=== PATIENT | female | born 1985 | race Caucasian/White ===

== ENCOUNTER → 2016-07-26 | Outpatient (CLI) | payer OTHER ==
[2016-01-08 11:38] VITALS: BP 156/97
[~2016-07-26] MED LIST: ACET-704 PO; GADOBUTROL 7.5 MMOL/7.5 ML VIAL IV ONE; LEVO500T38 PO
--- NOTE | 2016-07-26 12:22 | RAD ---
PROCEDURE MRI brain with and without contrast. HISTORY Worsening migraine headaches. TECHNIQUE Sagittal T1, axial T1, axial T2, axial FLAIR, axial T2 gradient, diffusion imaging with ADC map, post-contrast axial, post-contrast sagittal, and post-contrast coronal sequences are provided. 7.5 milliliters of intravenous Gadavist was administered without complication. COMPARISON October 30, 2014. FINDINGS Ventricles are normal in size and configuration. FLAIR hyperintensity in the left frontal white matter is similar to prior. There is no associated enhancement. There is no acute intracranial hemorrhage or extra-axial fluid collection. There is no restricted diffusion to suggest an acute infarct. Cervicomedullary junction is unremarkable. Pituitary and suprasellar region are unremarkable. Basilar artery flow void is diminutive in size, presumably secondary to a predominantly origin of both posterior cerebral arteries. There is minimal ethmoid mucosal thickening. 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 There is no pathologic enhancement. IMPRESSION - No acute intracranial findings. - Single punctate focus of FLAIR hyperintensity in the left frontal white matter is stable, nonspecific, could be sequela of small migraine headaches. Electronically signed by: Malvin Jasso MD (July 26, 2016 12:20:42)
== END | disposition home or self-care (01) ==
LOC: MRI 11:01
PROVIDERS: ATTEND Internal Medicine
DX: G43.909 Migraine, unspecified, not intractable, without status migrainosus (principal)
CPT/HCPCS: 70553; A9585

== ENCOUNTER 2018-08-11 12:09 | Inpatient (IN) | payer OTHER, SELFPAY ==
[~2018-08-11] VITALS: Ht 154.9 cm; Wt 81.6 kg
[~2018-08-11 12:09] MED LIST changes: -GADOBUTROL 7.5 MMOL/7.5 ML VIAL IV ONE; -LEVO500T38 PO; +LEVO500T59 PO
[2018-08-11 12:36] LABS: BILIRUBIN,URINE NEGATIVE (NEG); CLARITY,URINE CLOUDY; COLOR,URINE YELLOW; NITRITE,URINE NEGATIVE (NEG); PROTEIN,URINE 30 mg/dL (NEG-TRACE)
[2018-08-11 12:44] LABS: SQUAMOUS EPITHELIAL CELL,UR MANY /LPF
[2018-08-11] MEDS ORDERED: KETOROLAC 30 MG/ML VIAL. IV ONE (12:45)
[2018-08-11] MEDS ORDERED: ONDANSETRON PF 4 MG/2 ML VIAL. IV ONE (12:45)
[2018-08-11 12:47] LABS: BACTERIA,URINE 0 /HPF (0-FEW); RBC,URINE 0 /HPF (0-2); WBC,URINE 0 /HPF (0-4)
--- NOTE | 2018-08-11 12:49 | PHYS DOC ---
Past Medical History Past Medical History: Other Additional Past Medical Histor: PCOS, MIGRAINES, BRONCHITIS Past Surgical History: Other Additional Past Surgical Histo: knee surgery , tubes in ears, LASIX, Alcohol Use: Occasionally Drug Use: None Adult General Chief Complaint Chief Complaint: ABDOMINAL PAIN HPI HPI Patient is a 33 year old female with history of PCOS who presents to the ED today stating she has appendicitis. Patient is complaining of pelvic/lower abd bilaterally pain rated at 8 out of 10 described as sharp and intermittent that has been going on since Monday this week, she states she was seen at [facility] and was told her appendix is inflamed but sent home with Zofran. Patient denies any vomiting. He states she's been nauseated. Denies any chance she is . She states that they did an ultrasound at [facility] as well as a pelvic exam which showed she had an inflamed appendix. Denies any urgency frequency dysuria. Denies any concerns for STDs. Review of Systems Review of Systems Constitutional: Denies fever or chills [] Eyes: Denies change in visual acuity, redness, or eye pain [] HENT: Denies nasal congestion or sore throat [] Respiratory: Denies cough or shortness of breath [] Cardiovascular: No additional information not addressed in HPI [] GI: Reports abdominal pain, nausea, denies vomiting, bloody stools or diarrhea [] : Denies dysuria or hematuria [] Musculoskeletal: Denies back pain or joint pain [] Integument: Denies rash or skin lesions [] Neurologic: Denies headache, focal weakness or sensory changes [] All other systems were reviewed and found to be within normal limits, except as documented in this note. Current Medications Current Medications Current Medications Medications (Trade) Dose Ordered Sig/Genevieve Start Time Stop Time Status Last Admin Dose Admin Info (CONTRAST GIVEN -- Rx MONITORING) 1 each PRN DAILY PRN 08/11/18 13:30 08/13/18 13:29 Iohexol (Omnipaque 300 Mg/ml) 75 ml 1X ONCE 08/11/18 13:15 08/11/18 13:16 DC 08/11/18 13:40 75 ML Ketorolac Tromethamine (Toradol 30mg Vial) 30 mg 1X ONCE 08/11/18 12:45 08/11/18 12:46 DC 08/11/18 12:49 30 MG Ondansetron HCl (Zofran) 4 mg 1X ONCE 08/11/18 12:45 08/11/18 12:46 DC 08/11/18 12:49 4 MG Allergies Allergies Allergies Coded Allergies Type Severity Reaction Last Updated Verified No Known Drug Allergies 02/26/14 No Physical Exam Physical Exam Constitutional: Well developed, well nourished, no acute distress, non-toxic appearance. [] HENT: Normocephalic, atraumatic, bilateral external ears normal, oropharynx moist, no oral exudates, nose normal. [] Eyes: PERRLA, EOMI, conjunctiva normal, no discharge. [] Neck: Normal range of motion, no tenderness, supple, no stridor. [] Cardiovascular:Heart rate regular rhythm, no murmur [] Lungs & Thorax: Bilateral breath sounds clear to auscultation [] Abdomen: Bowel sounds normal, soft, tenderness diffusely on the pelvic region bilaterally, negative psoas sign, negative obturator sign, negative Rovsing sign, no guarding, no rebound tenderness no masses, no pulsatile masses. [] Skin: Warm, dry, no erythema, no rash. [] Back: No tenderness, no CVA tenderness. [] Extremities: No tenderness, no cyanosis, no clubbing, ROM intact, no edema. [] Neurologic: Alert and oriented X 3, normal motor function, normal sensory function, no focal deficits noted. [] Psychologic: Affect normal, judgement normal, mood normal. [] Current Patient Data Vital Signs Vital Signs Date Time Temp Pulse Resp B/P (MAP) Pulse Ox O2 Delivery O2 Flow Rate FiO2 08/11/18 14:15 92 15 96/67 (77) 99 Room Air 08/11/18 12:15 98.4 98.4 Lab Values Laboratory Tests Test 08/11/18 12:20 08/11/18 12:28 08/11/18 12:39 Urine Collection Type Unknown Urine Color Yellow Urine Clarity Cloudy Urine pH 6.0 Urine Specific [place] >=1.030 Urine Protein 30 mg/dL (NEG-TRACE) Urine Glucose (UA) Negative mg/dL (NEG) Urine Ketones (Stick) Negative mg/dL (NEG) Urine Blood Negative (NEG) Urine Nitrite Negative (NEG) Urine Bilirubin Negative (NEG) Urine Urobilinogen Dipstick 1.0 mg/dL (0.2 mg/dL) Urine Leukocyte Esterase Moderate (NEG) Urine RBC 0 /HPF (0-2) Urine WBC 0 /HPF (0-4) Urine Squamous Epithelial Cells Many /LPF Urine Bacteria 0 /HPF (0-FEW) Urine Mucus Slight /LPF Urine Opiates Screen Neg (NEG) Urine Methadone Screen Neg (NEG) Urine Barbiturates Neg (NEG) Urine Phencyclidine Screen Neg (NEG) Urine Amphetamine/Methamphetamine Neg (NEG) Urine Benzodiazepines Screen Neg (NEG) Urine Cocaine Screen Neg (NEG) Urine Cannabinoids Screen Neg (NEG) Urine Ethyl Alcohol Neg (NEG) POC Urine HCG, Qualitative Hcg negative (Negative) White Blood Count 15.4 x10^3/uL (4.0-11.0) H Red Blood Count 4.76 x10^6/uL (3.50-5.40) Hemoglobin 14.3 g/dL (12.0-15.5) Hematocrit 41.9 % (36.0-47.0) Mean Corpuscular Volume 88 fL (79-100) Mean Corpuscular Hemoglobin 30 pg (25-35) Mean Corpuscular Hemoglobin Concent 34 g/dL (31-37) Red Cell Distribution Width 13.6 % (11.5-14.5) Platelet Count 304 x10^3/uL (140-400) Neutrophils (%) (Auto) 70 % (31-73) Lymphocytes (%) (Auto) 20 % (24-48) L Monocytes (%) (Auto) 8 % (0-9) Eosinophils (%) (Auto) 1 % (0-3) Basophils (%) (Auto) 1 % (0-3) Neutrophils # (Auto) 10.8 x10^3uL (1.8-7.7) H Lymphocytes # (Auto) 3.1 x10^3/uL (1.0-4.8) Monocytes # (Auto) 1.2 x10^3/uL (0.0-1.1) H Eosinophils # (Auto) 0.1 x10^3/uL (0.0-0.7) Basophils # (Auto) 0.1 x10^3/uL (0.0-0.2) Sodium Level 141 mmol/L (136-145) Potassium Level 4.0 mmol/L (3.5-5.1) Chloride Level 105 mmol/L (98-107) Carbon Dioxide Level 25 mmol/L (21-32) Anion Gap 11 (6-14) Blood Urea Nitrogen 9 mg/dL (7-20) Creatinine 0.8 mg/dL (0.6-1.0) Estimated GFR (Cockcroft-Gault) 81.6 BUN/Creatinine Ratio 11 (6-20) Glucose Level 94 mg/dL (70-99) Calcium Level 8.7 mg/dL (8.5-10.1) Total Bilirubin 0.1 mg/dL (0.2-1.0) L Aspartate Amino Transferase (AST) 24 U/L (15-37) Alanine Aminotransferase (ALT) 31 U/L (14-59) Alkaline Phosphatase 77 U/L (46-116) Total Protein 7.1 g/dL (6.4-8.2) Albumin 3.6 g/dL (3.4-5.0) Albumin/Globulin Ratio 1.0 (1.0-1.7) Lipase 200 U/L (73-393) Ethyl Alcohol Level < 10 mg/dL (0-10) Laboratory Tests 08/11/18 12:39 Laboratory Tests 08/11/18 12:39 EKG EKG [] Radiology/Procedures Radiology/Procedures []PROCEDURE: CT ABD PELV W/ IV CONTRST ONLY Examination: CT of the abdomen pelvis with IV contrast HISTORY: History of lower abdominal pain COMPARISON: None available TECHNIQUE: Axial CT images of the abdomen pelvis were performed with IV contrast. Coronal and sagittal reformats are performed Exposure: One or more of the following individualized dose reduction techniques were utilized for this examination: 1. Automated exposure control 2. Adjustment of the mA and/or kV according to patient size 3. Use of iterative reconstruction technique FINDINGS: The bibasilar lungs are clear. No evidence of free air identified in the abdomen. The visualized liver, spleen, adrenals grossly appears unremarkable. The gallbladder is mildly distended. The stomach is mildly distended. The visualized pancreas grossly appears unremarkable. The small bowel is nondilated. Feces and gas noted in the colon. The urinary bladder is mildly distended. Prominent appearing bilateral ovaries with cystic structure in the right and left ovaries measuring about 3.6 cm in the right and 2.8 cm in the left. Faint questionable fat stranding identified in the adnexa. The bilateral kidneys enhance symmetrically. The caliber of the aorta grossly appears unremarkable. Intrauterine contraceptive device is identified. No evidence of lytic bony destructive lesion. IMPRESSION: Prominent appearing right and left ovaries with cystic structures within. There is some mild fat stranding identified in the bilateral adnexa. nonspecific, pelvic inflammatory disease is not completely excluded. Consider ultrasound pelvis for further evaluation. Electronically signed by: Azam Claros MD (08/11/2018 1:58 PM) [facility] DICTATED and SIGNED BY: AZMA CLAROS MD DATE: 08/11/18 2778 Course & Med Decision Making Course & Med Decision Making Pertinent Labs and Imaging studies reviewed. (See chart for details) This is a 33-year-old female patient presenting to the ED today complaining of abdominal pain, she states she was seen at a different facility on and was told her appendix was inflamed but sent home with Zofran. Vitals on arrival to the ED temperature 98.4 heart rate 100 O2 sats 99% on room air blood pressure 156/97. CBC with a WBC of 15.4, CMP would not acute findings. CT of the abdomen and pelvic was noted for possible pelvic inflammatory disease. Negative urine hCG, urine analysis is noted for moderate amount of leukocytes. Patient states she from the and has had 2 new partners in the last couple months. On inquiry, patient states when she was seen at [facility] she was given what sounds like Rocephin and azithromycin though she was not 100% sure. Patient was given Rocephin IV, Flagyl and azithromycin IV 14:[address] Maldonado who accepted patient for admission Draggilda Disclaimer Dragon Disclaimer This electronic medical record was generated, in whole or in part, using a voice recognition dictation system. Departure Departure Impression: Primary Impression: Acute pelvic inflammatory disease Disposition: ADMITTED INPATIENT Condition: STABLE Referrals: RHINA BLACKWOOD MD (PCP) [employer] August 11, 2018 12:49
[2018-08-11 12:59] LABS: BASO # 0.1 x10^3/uL (0.0-0.2); BASO % 1 % (0-3); EOS # 0.1 x10^3/uL (0.0-0.7); EOS % 1 % (0-3); HEMATOCRIT 41.9 % (36.0-47.0); HEMOGLOBIN 14.3 g/dL (12.0-15.5); LYMPH # 3.1 x10^3/uL (1.0-4.8); LYMPH % 20 % (24-48); MEAN CORPUSCULAR HEMOGLOBIN 30 pg (25-35); MEAN CORPUSCULAR HGB CONC 34 g/dL (31-37); MEAN CORPUSCULAR VOLUME 88 fL (79-100); MONO # 1.2 x10^3/uL (0.0-1.1); MONO % 8 % (0-9); NEUT # 10.8 x10^3uL (1.8-7.7); NEUT % 70 % (31-73); PLATELET COUNT 304 x10^3/uL (140-400); RED BLOOD COUNT 4.76 x10^6/uL (3.50-5.40); RED CELL DISTRIBUTION WIDTH 13.6 % (11.5-14.5); WHITE BLOOD COUNT 15.4 x10^3/uL (4.0-11.0)
[2018-08-11] MEDS ORDERED: IOHEXOL 300 MG/ML 100ML VIAL. IV ONE (13:15)
[2018-08-11 13:26] LABS: CALCIUM 8.7 mg/dL (8.5-10.1); CREATININE 0.8 mg/dL (0.6-1.0); GFR 81.6
[2018-08-11] MEDS ORDERED: CONTRAST GIVEN. MC PRN (13:30)
[2018-08-11 13:32] LABS: ALBUMIN 3.6 g/dL (3.4-5.0); TOTAL BILIRUBIN 0.1 mg/dL (0.2-1.0); TOTAL PROTEIN 7.1 g/dL (6.4-8.2)
[2018-08-11 13:35] LABS: BARBITURATES NEG (NEG); BENZODIAZEPINES NEG (NEG); CANNABINOIDS NEG (NEG); COCAINE NEG (NEG); METHADONE NEG (NEG); OPIATES NEG (NEG); PHENCYCLIDINE NEG (NEG)
[2018-08-11 13:36] LABS: AMPHETAMINE/METHAMPHETAMINE NEG (NEG)
--- NOTE | 2018-08-11 14:01 | RAD ---
Examination: CT of the abdomen pelvis with IV contrast HISTORY: History of lower abdominal pain COMPARISON: None available TECHNIQUE: Axial CT images of the abdomen pelvis were performed with IV contrast. Coronal and sagittal reformats are performed Exposure: One or more of the following individualized dose reduction techniques were utilized for this examination: 1. Automated exposure control 2. Adjustment of the mA and/or kV according to patient size 3. Use of iterative reconstruction technique FINDINGS: The bibasilar lungs are clear. No evidence of free air identified in the abdomen. The visualized liver, spleen, adrenals grossly appears unremarkable. The gallbladder is mildly distended. The stomach is mildly distended. The visualized pancreas grossly appears unremarkable. The small bowel is nondilated. Feces and gas noted in the colon. The urinary bladder is mildly distended. Prominent appearing bilateral ovaries with cystic structure in the right and left ovaries measuring about 3.6 cm in the right and 2.8 cm in the left. Faint questionable fat stranding identified in the adnexa. The bilateral kidneys enhance symmetrically. The caliber of the aorta grossly appears unremarkable. Intrauterine contraceptive device is identified. No evidence of lytic bony destructive lesion. IMPRESSION: Prominent appearing right and left ovaries with cystic structures within. There is some mild fat stranding identified in the bilateral adnexa. nonspecific, pelvic inflammatory disease is not completely excluded. Consider ultrasound pelvis for further evaluation. Electronically signed by: Azam Claros MD (08/11/2018 1:58 PM) [facility]
[2018-08-11] MEDS ORDERED: IV NORMAL SALINE 1000ML BAG 1,000 ML IV ONE (15:30)
[2018-08-11] MEDS ORDERED: ONDANSETRON PF 4 MG/2 ML VIAL. IV PRN ×2 (15:30→15:45)
[2018-08-11] MEDS ORDERED: AZITHRMYCN 500MG IVPB FOR OMNI 250 ML IV ONE (15:30)
[2018-08-11] MEDS ORDERED: MORPHINE SULFATE 4 MG/ML VIAL. IV PRN (15:30)
[2018-08-11] MEDS ORDERED: ACETAMINOPHEN 325 MG TABLET. PO PRN (15:30)
[2018-08-11] MEDS ORDERED: KETOROLAC 30 MG/ML VIAL. IV PRN (15:45)
[2018-08-11] MEDS ORDERED: fentaNYL PF VIAL 100 MCG/2 ML VIAL IV PRN (15:45)
[2018-08-11] MEDS ORDERED: AZITHROMYCIN 500 MG in IV NORMAL SALINE 250ML 250 ML IV ONE (15:45)
[2018-08-11] MEDS ORDERED: cefTRIAXone IV Push 1 GM VIAL. IVP SCH (16:00)
[2018-08-11] MEDS: IV RINGERS,LACTATED 1000ML 1,000 ML IV SCH (16:54)
[2018-08-11] MEDS ORDERED: AZITHRMYCN 500MG IVPB FOR OMNI 250 ML IV SCH (17:00)
[2018-08-11 17:07] VITALS: BP 113/76
[2018-08-11] MEDS: IBUPROFEN 400 MG TABLET. PO PRN (18:20)
[2018-08-11] MEDS: NICOTINE 14MG PATCH. TD PRN (20:00)
[2018-08-11 23:02] VITALS: BP 119/75
[2018-08-12] MEDS: IV RINGERS,LACTATED 1000ML 1,000 ML IV SCH ×4 (01:47→21:46)
[2018-08-12] MEDS: IBUPROFEN 400 MG TABLET. PO PRN ×3 (06:09→20:40)
[2018-08-12 06:14] LABS: BASO # 0.1 x10^3/uL (0.0-0.2); BASO % 1 % (0-3); EOS # 0.3 x10^3/uL (0.0-0.7); EOS % 3 % (0-3); HEMOGLOBIN 13.4 g/dL (12.0-15.5); LYMPH # 3.3 x10^3/uL (1.0-4.8); LYMPH % 35 % (24-48); MEAN CORPUSCULAR HEMOGLOBIN 29 pg (25-35); MEAN CORPUSCULAR HGB CONC 33 g/dL (31-37); MEAN CORPUSCULAR VOLUME 88 fL (79-100); MONO # 0.7 x10^3/uL (0.0-1.1); MONO % 8 % (0-9); NEUT # 5.1 x10^3uL (1.8-7.7); NEUT % 54 % (31-73); PLATELET COUNT 241 x10^3/uL (140-400); RED BLOOD COUNT 4.64 x10^6/uL (3.50-5.40); RED CELL DISTRIBUTION WIDTH 13.5 % (11.5-14.5); WHITE BLOOD COUNT 9.5 x10^3/uL (4.0-11.0)
[2018-08-12 06:15] VITALS: BP 119/75
[2018-08-12 06:26] LABS: CALCIUM 8.4 mg/dL (8.5-10.1); CREATININE 0.7 mg/dL (0.6-1.0); GFR 95.2
--- NOTE | 2018-08-12 11:38 | PDOC1 ---
History and Physical Date of Admission Date of Admission DATE: 08/12/18 TIME: 11:34 Identification/Chief Complaint Chief Complaint pelvic pain Source Source: Chart review, Patient History of Present Illness History of Present Illness 33 y/o G0 presented with pelvic pain x 2 days. SHe denies fever, chills, night sweats or h/o STD. She has Mirena IUD in place since 2017 with no complications. Pelvic sono indicated possible PID with clinic symptoms from ED. Pt. currently taking IV abx and pelvic pain has improved. Past Surgical History Past Surgical History: No pertinent history Current Problem List Problem List Problems Medical Problems: (1) Acute pelvic inflammatory disease Status: Acute Current Medications Current Medications Current Medications Ondansetron HCl (Zofran) 4 mg 1X ONCE IV Last administered on 08/11/18at 12:49; Start 08/11/18 at 12:45; Stop 08/11/18 at 15:50; Status DC Ketorolac Tromethamine (Toradol 30mg Vial) 30 mg 1X ONCE IV Last administered on 08/11/18at 12:49; Start 08/11/18 at 12:45; Stop 08/11/18 at 15:50; Status DC Iohexol (Omnipaque 300 Mg/ml) 75 ml 1X ONCE IV Last administered on 08/11/18at 13:40; Start 08/11/18 at 13:15; Stop 08/11/18 at 13:16; Status DC Info (CONTRAST GIVEN -- Rx MONITORING) 1 each PRN DAILY PRN MC SEE COMMENTS; Start 08/11/18 at 13:30; Stop 08/13/18 at 13:29 Ondansetron HCl (Zofran) 4 mg PRN Q8HRS PRN IV NAUSEA/VOMITING; Start 08/11/18 at 15:30; Stop 08/11/18 at 15:50; Status DC Morphine Sulfate (Morphine Sulfate) 4 mg PRN Q2HR PRN IV PAIN; Start 08/11/18 at 15:30; Stop 08/11/18 at 15:50; Status DC Acetaminophen (Tylenol) 650 mg PRN Q4HRS PRN PO FEVER Last administered on 08/12/18at 10:37; Start 08/11/18 at 15:30; Stop 08/12/18 at 15:29 Ceftriaxone Sodium (Rocephin) 1 gm Q24H IVP ; Start 08/11/18 at 16:00; Stop 08/11/18 at 16:00; Status DC Azithromycin 250 ml @ 250 mls/hr 1X ONCE IV ; Start 08/11/18 at 15:30; Stop 08/11/18 at 16:29; Status Cancel Metronidazole 100 ml @ 100 mls/hr Q8HRS IV Last administered on 08/11/18at 15:30; Start 08/11/18 at 15:30; Stop 08/11/18 at 15:50; Status DC Sodium Chloride 1,000 ml @ 125 mls/hr 1X ONCE IV ; Start 08/11/18 at 15:30; Stop 08/11/18 at 15:50; Status DC Azithromycin 500 mg/Sodium Chloride 250 ml @ 250 mls/hr 1X ONCE IV Last administered on 08/11/18at 16:55; Start 08/11/18 at 15:45; Stop 08/11/18 at 16: 44; Status DC Ringer's Solution 1,000 ml @ 120 mls/hr Q8H20M IV Last administered on 08/12/18at 11:32; Start 08/11/18 at 15:45 Azithromycin 250 ml @ 250 mls/hr DAILY IV ; Start 08/11/18 at 17:00; Status UNV Metronidazole 100 ml @ 100 mls/hr Q12H IV Last administered on 08/12/18at 05:56; Start 08/11/18 at 18:00 Ondansetron HCl (Zofran) 4 mg PRN Q6HRS PRN IV NAUSEA/VOMITING; Start 08/11/18 at 15:45 Fentanyl Citrate (Fentanyl 2ml Vial) 50 mcg PRN Q6HRS PRN IV PAIN; Start 08/11/18 at 15:45 Ketorolac Tromethamine (Toradol 30mg Vial) 30 mg PRN Q6HRS PRN IV PAIN MILD/INFLAMMATION Last administered on 08/12/18at 00:35; Start 08/11/18 at 15:45; Stop 08/16/18 at 15:44 Ibuprofen (Motrin) 800 mg PRN Q6HRS PRN PO INFLAMMATION Last administered on 08/12/18at 06:09; Start 08/11/18 at 15:45 Nicotine (Nicoderm Cq 14mg) 1 patch PRN DAILY PRN TD SMOKING CESSATION Last administered on 08/11/18at 20:00; Start 08/11/18 at 15:45 Azithromycin 500 mg/Sodium Chloride 250 ml @ 250 mls/hr Q24H IV ; Start 08/12/18 at 16:00 Active Scripts Active Tylenol With Codeine #3 Tablet (Acetaminophen/Codeine Phosphate) 1 Each Tablet 1 Tab PO PRN Q6HRS PRN Levaquin (Levofloxacin) 500 Mg Tablet 1 Tab PO DAILY Allergies Allergies: Coded Allergies: No Known Drug Allergies (Unverified , 02/26/14) ROS General: No: Chills, Night Sweats, Fatigue, Malaise, Appetite, Other PSYCHOLOGICAL ROS: YES: Anxiety; No: Behavioral Disorder, Concentration difficultie, Decreased libido, Depression, Disorientation, Hallucinations, Hostility, Irritablity, Memory difficulties, Mood Swings, Obsessive thoughts, Physical abuse, Sexual abuse, Sleep disturbances, Suicidal ideation, Other Eyes: No Blurry vision, No Decreased vision, No Double vision, No Dry eyes, No Excessive tearing, No Eye Pain, No Itchy Eyes, No Loss of vision, No Photophobia, No Scotomata, No Uses contacts, No Uses glasses, No Other HEENT: No: Heacaches, Visual Changes, Hearing change, Nasal congestion, Nasal discharge, Oral lesions, Sinus pain, Sore Throat, Epistaxis, Sneezing, Snoring, Tinnitus, Vertigo, Vocal changes, Other ALLERGY AND IMMUNOLOGY: No: Hives, Insect Bite Sensitivity, Itchy/Watery Eyes, Nasal Congestion, Post Nasal Drip, Seasonal Allergies, Other Hematological and Lymphatic: No: Bleeding Problems, Blood Clots, Blood Transfusions, Brusing, Night Sweats, Pallor, Swollen Lymph Nodes, Other ENDOCRINE: No: Breast Changes, Galactorrhea, Hair Pattern Changes, Hot Flashes, Malaise/lethargy, Mood Swings, Palpitations, Polydipsia/polyuria, Skin Changes, Temperature Intolerance, Unexpected Weight Changes, Other Breast: No New/Changing Breast Lumps, No Nipple changes, No Nipple discharge, No Other Respiratory: No: Cough, Hemoptysis, Orthopnea, Pleuritic Pain, Shortness of breath, SOB with excertion, Sputum Changes, Stridor, Tachypnea, Wheezing, Other Cardiovascular: No Chest Pain, No Palpitations, No Orthopnea, No Paroxysmal Noc. Dyspnea, No Edema, No Lt Headedness, No Other Gastrointestinal: Yes Abdominal Pain Musculoskeletal: No Gait Disturbance, No Joint Pain, No Joint Stiffness, No Joint Swelling, No Muscle Pain, No Muscular Weakness, No Pain In:, No Swelling In:, No Other Skin: No Dry Skin, No Eczema, No Hair Changes, No Lumps, No Mole Changes, No Mottling, No Nail Changes, No Pruritus, No Rash, No Skin Lesion Changes, No Other, No Acne Physical Exam General: Alert, Oriented X3, Cooperative HEENT: Atraumatic Lungs: Clear to auscultation Heart: S1S2 Breasts: Normal Abdomen: Normal bowel sounds, Soft, No masses, Other (Right and Left lower quandrant tenderness; no rebound tenderness) Vitals Vitals Vital Signs Date Time Temp Pulse Resp B/P (MAP) Pulse Ox O2 Delivery O2 Flow Rate FiO2 08/12/18 06:15 97.9 83 16 119/75 (90) 98 Room Air 97.9 Labs Labs Laboratory Tests Test 08/11/18 12:20 08/11/18 12:28 08/11/18 12:39 08/12/18 05:50 Urine Collection Type Unknown Urine Color Yellow Urine Clarity Cloudy Urine pH 6.0 Urine Specific Cuthbert >=1.030 Urine Protein 30 mg/dL (NEG-TRACE) Urine Glucose (UA) Negative mg/dL (NEG) Urine Ketones (Stick) Negative mg/dL (NEG) Urine Blood Negative (NEG) Urine Nitrite Negative (NEG) Urine Bilirubin Negative (NEG) Urine Urobilinogen Dipstick 1.0 mg/dL (0.2 mg/dL) Urine Leukocyte Esterase Moderate (NEG) Urine RBC 0 /HPF (0-2) Urine WBC 0 /HPF (0-4) Urine Squamous Epithelial Cells Many /LPF Urine Bacteria 0 /HPF (0-FEW) Urine Mucus Slight /LPF Urine Opiates Screen Neg (NEG) Urine Methadone Screen Neg (NEG) Urine Barbiturates Neg (NEG) Urine Phencyclidine Screen Neg (NEG) Urine Amphetamine/Methamphetamine Neg (NEG) Urine Benzodiazepines Screen Neg (NEG) Urine Cocaine Screen Neg (NEG) Urine Cannabinoids Screen Neg (NEG) Urine Ethyl Alcohol Neg (NEG) Bedside Urine HCG, Qualitative Hcg negative (Negative) White Blood Count 15.4 x10^3/uL (4.0-11.0) 9.5 x10^3/uL (4.0-11.0) Red Blood Count 4.76 x10^6/uL (3.50-5.40) 4.64 x10^6/uL (3.50-5.40) Hemoglobin 14.3 g/dL (12.0-15.5) 13.4 g/dL (12.0-15.5) Hematocrit 41.9 % (36.0-47.0) 41.0 % (36.0-47.0) Mean Corpuscular Volume 88 fL (79-100) 88 fL (79-100) Mean Corpuscular Hemoglobin 30 pg (25-35) 29 pg (25-35) Mean Corpuscular Hemoglobin Concent 34 g/dL (31-37) 33 g/dL (31-37) Red Cell Distribution Width 13.6 % (11.5-14.5) 13.5 % (11.5-14.5) Platelet Count 304 x10^3/uL (140-400) 241 x10^3/uL (140-400) Neutrophils (%) (Auto) 70 % (31-73) 54 % (31-73) Lymphocytes (%) (Auto) 20 % (24-48) 35 % (24-48) Monocytes (%) (Auto) 8 % (0-9) 8 % (0-9) Eosinophils (%) (Auto) 1 % (0-3) 3 % (0-3) Basophils (%) (Auto) 1 % (0-3) 1 % (0-3) Neutrophils # (Auto) 10.8 x10^3uL (1.8-7.7) 5.1 x10^3uL (1.8-7.7) Lymphocytes # (Auto) 3.1 x10^3/uL (1.0-4.8) 3.3 x10^3/uL (1.0-4.8) Monocytes # (Auto) 1.2 x10^3/uL (0.0-1.1) 0.7 x10^3/uL (0.0-1.1) Eosinophils # (Auto) 0.1 x10^3/uL (0.0-0.7) 0.3 x10^3/uL (0.0-0.7) Basophils # (Auto) 0.1 x10^3/uL (0.0-0.2) 0.1 x10^3/uL (0.0-0.2) Sodium Level 141 mmol/L (136-145) 141 mmol/L (136-145) Potassium Level 4.0 mmol/L (3.5-5.1) 4.0 mmol/L (3.5-5.1) Chloride Level 105 mmol/L (98-107) 106 mmol/L (98-107) Carbon Dioxide Level 25 mmol/L (21-32) 24 mmol/L (21-32) Anion Gap 11 (6-14) 11 (6-14) Blood Urea Nitrogen 9 mg/dL (7-20) 8 mg/dL (7-20) Creatinine 0.8 mg/dL (0.6-1.0) 0.7 mg/dL (0.6-1.0) Estimated GFR (Cockcroft-Gault) 81.6 95.2 BUN/Creatinine Ratio 11 (6-20) Glucose Level 94 mg/dL (70-99) 95 mg/dL (70-99) Calcium Level 8.7 mg/dL (8.5-10.1) 8.4 mg/dL (8.5-10.1) Total Bilirubin 0.1 mg/dL (0.2-1.0) Aspartate Amino Transf (AST/SGOT) 24 U/L (15-37) Alanine Aminotransferase (ALT/SGPT) 31 U/L (14-59) Alkaline Phosphatase 77 U/L (46-116) Total Protein 7.1 g/dL (6.4-8.2) Albumin 3.6 g/dL (3.4-5.0) Albumin/Globulin Ratio 1.0 (1.0-1.7) Lipase 200 U/L (73-393) Ethyl Alcohol Level < 10 mg/dL (0-10) Laboratory Tests Test 08/11/18 12:20 08/11/18 12:28 08/11/18 12:39 08/12/18 05:50 Urine Collection Type Unknown Urine Color Yellow Urine Clarity Cloudy Urine pH 6.0 Urine Specific Cuthbert >=1.030 Urine Protein 30 mg/dL (NEG-TRACE) Urine Glucose (UA) Negative mg/dL (NEG) Urine Ketones (Stick) Negative mg/dL (NEG) Urine Blood Negative (NEG) Urine Nitrite Negative (NEG) Urine Bilirubin Negative (NEG) Urine Urobilinogen Dipstick 1.0 mg/dL (0.2 mg/dL) Urine Leukocyte Esterase Moderate (NEG) Urine RBC 0 /HPF (0-2) Urine WBC 0 /HPF (0-4) Urine Squamous Epithelial Cells Many /LPF Urine Bacteria 0 /HPF (0-FEW) Urine Mucus Slight /LPF Urine Opiates Screen Neg (NEG) Urine Methadone Screen Neg (NEG) Urine Barbiturates Neg (NEG) Urine Phencyclidine Screen Neg (NEG) Urine Amphetamine/Methamphetamine Neg (NEG) Urine Benzodiazepines Screen Neg (NEG) Urine Cocaine Screen Neg (NEG) Urine Cannabinoids Screen Neg (NEG) Urine Ethyl Alcohol Neg (NEG) Bedside Urine HCG, Qualitative Hcg negative (Negative) White Blood Count 15.4 x10^3/uL (4.0-11.0) 9.5 x10^3/uL (4.0-11.0) Red Blood Count 4.76 x10^6/uL (3.50-5.40) 4.64 x10^6/uL (3.50-5.40) Hemoglobin 14.3 g/dL (12.0-15.5) 13.4 g/dL (12.0-15.5) Hematocrit 41.9 % (36.0-47.0) 41.0 % (36.0-47.0) Mean Corpuscular Volume 88 fL (79-100) 88 fL (79-100) Mean Corpuscular Hemoglobin 30 pg (25-35) 29 pg (25-35) Mean Corpuscular Hemoglobin Concent 34 g/dL (31-37) 33 g/dL (31-37) Red Cell Distribution Width 13.6 % (11.5-14.5) 13.5 % (11.5-14.5) Platelet Count 304 x10^3/uL (140-400) 241 x10^3/uL (140-400) Neutrophils (%) (Auto) 70 % (31-73) 54 % (31-73) Lymphocytes (%) (Auto) 20 % (24-48) 35 % (24-48) Monocytes (%) (Auto) 8 % (0-9) 8 % (0-9) Eosinophils (%) (Auto) 1 % (0-3) 3 % (0-3) Basophils (%) (Auto) 1 % (0-3) 1 % (0-3) Neutrophils # (Auto) 10.8 x10^3uL (1.8-7.7) 5.1 x10^3uL (1.8-7.7) Lymphocytes # (Auto) 3.1 x10^3/uL (1.0-4.8) 3.3 x10^3/uL (1.0-4.8) Monocytes # (Auto) 1.2 x10^3/uL (0.0-1.1) 0.7 x10^3/uL (0.0-1.1) Eosinophils # (Auto) 0.1 x10^3/uL (0.0-0.7) 0.3 x10^3/uL (0.0-0.7) Basophils # (Auto) 0.1 x10^3/uL (0.0-0.2) 0.1 x10^3/uL (0.0-0.2) Sodium Level 141 mmol/L (136-145) 141 mmol/L (136-145) Potassium Level 4.0 mmol/L (3.5-5.1) 4.0 mmol/L (3.5-5.1) Chloride Level 105 mmol/L (98-107) 106 mmol/L (98-107) Carbon Dioxide Level 25 mmol/L (21-32) 24 mmol/L (21-32) Anion Gap 11 (6-14) 11 (6-14) Blood Urea Nitrogen 9 mg/dL (7-20) 8 mg/dL (7-20) Creatinine 0.8 mg/dL (0.6-1.0) 0.7 mg/dL (0.6-1.0) Estimated GFR (Cockcroft-Gault) 81.6 95.2 BUN/Creatinine Ratio 11 (6-20) Glucose Level 94 mg/dL (70-99) 95 mg/dL (70-99) Calcium Level 8.7 mg/dL (8.5-10.1) 8.4 mg/dL (8.5-10.1) Total Bilirubin 0.1 mg/dL (0.2-1.0) Aspartate Amino Transf (AST/SGOT) 24 U/L (15-37) Alanine Aminotransferase (ALT/SGPT) 31 U/L (14-59) Alkaline Phosphatase 77 U/L (46-116) Total Protein 7.1 g/dL (6.4-8.2) Albumin 3.6 g/dL (3.4-5.0) Albumin/Globulin Ratio 1.0 (1.0-1.7) Lipase 200 U/L (73-393) Ethyl Alcohol Level < 10 mg/dL (0-10) VTE Prophylaxis Ordered VTE Prophylaxis Devices: No VTE Pharmacological Prophylaxi: No Assessment/Plan Assessment/Plan A: PID P: Continue IV abx 48 hours. If improved, then d/c home tomorrow with home abx. BREONNA BRICE Jr, MD August 12, 2018 11:38
[2018-08-12 12:00] VITALS: BP 110/78
[2018-08-12] MEDS ORDERED: AZITHROMYCIN 500 MG in IV NORMAL SALINE 250ML 250 ML IV SCH (16:00)
[2018-08-12 18:46] VITALS: BP 116/78
[2018-08-12] MEDS: NICOTINE 14MG PATCH. TD PRN (20:36)
[2018-08-12 22:30] VITALS: BP 125/78
[2018-08-13] MEDS: IV RINGERS,LACTATED 1000ML 1,000 ML IV SCH (06:02)
[2018-08-13] MEDS: IBUPROFEN 400 MG TABLET. PO PRN (06:05)
[2018-08-13 06:10] VITALS: BP 104/73
--- NOTE | 2018-08-13 09:25 | PDOC ---
SURGICAL PROGRESS NOTE Subjective Pt. reports less pelvic pain. No fevers, chills, night sweats or difficulty with meals. Vital Signs Vital Signs Date Time Temp Pulse Resp B/P (MAP) Pulse Ox O2 Delivery O2 Flow Rate FiO2 08/13/18 06:10 97.7 72 14 104/73 (83) 97 Room Air 97.7 I&O Intake and Output 08/13/18 07:00 Intake Total 1200 ml Output Total 2400 ml Balance -1200 ml Intake Oral 1200 ml Tube Feeding 0 ml Output Urine Total 2400 ml # Bowel Movements 1 PATIENT HAS A DEWITT: No General: Alert, Oriented X3, Cooperative HEENT: Atraumatic Lungs: Clear to auscultation Heart: Regular rate Abdomen: Normal bowel sounds, Soft, No tenderness, No masses Psych/Mental Status: Mental status NL Labs Laboratory Tests Test 08/11/18 12:20 08/11/18 12:28 08/11/18 12:39 08/12/18 05:50 Urine Collection Type Unknown Urine Color Yellow Urine Clarity Cloudy Urine pH 6.0 Urine Specific Lafferty >=1.030 Urine Protein 30 mg/dL (NEG-TRACE) Urine Glucose (UA) Negative mg/dL (NEG) Urine Ketones (Stick) Negative mg/dL (NEG) Urine Blood Negative (NEG) Urine Nitrite Negative (NEG) Urine Bilirubin Negative (NEG) Urine Urobilinogen Dipstick 1.0 mg/dL (0.2 mg/dL) Urine Leukocyte Esterase Moderate (NEG) Urine RBC 0 /HPF (0-2) Urine WBC 0 /HPF (0-4) Urine Squamous Epithelial Cells Many /LPF Urine Bacteria 0 /HPF (0-FEW) Urine Mucus Slight /LPF Urine Opiates Screen Neg (NEG) Urine Methadone Screen Neg (NEG) Urine Barbiturates Neg (NEG) Urine Phencyclidine Screen Neg (NEG) Urine Amphetamine/Methamphetamine Neg (NEG) Urine Benzodiazepines Screen Neg (NEG) Urine Cocaine Screen Neg (NEG) Urine Cannabinoids Screen Neg (NEG) Urine Ethyl Alcohol Neg (NEG) Bedside Urine HCG, Qualitative Hcg negative (Negative) White Blood Count 15.4 x10^3/uL (4.0-11.0) 9.5 x10^3/uL (4.0-11.0) Red Blood Count 4.76 x10^6/uL (3.50-5.40) 4.64 x10^6/uL (3.50-5.40) Hemoglobin 14.3 g/dL (12.0-15.5) 13.4 g/dL (12.0-15.5) Hematocrit 41.9 % (36.0-47.0) 41.0 % (36.0-47.0) Mean Corpuscular Volume 88 fL (79-100) 88 fL (79-100) Mean Corpuscular Hemoglobin 30 pg (25-35) 29 pg (25-35) Mean Corpuscular Hemoglobin Concent 34 g/dL (31-37) 33 g/dL (31-37) Red Cell Distribution Width 13.6 % (11.5-14.5) 13.5 % (11.5-14.5) Platelet Count 304 x10^3/uL (140-400) 241 x10^3/uL (140-400) Neutrophils (%) (Auto) 70 % (31-73) 54 % (31-73) Lymphocytes (%) (Auto) 20 % (24-48) 35 % (24-48) Monocytes (%) (Auto) 8 % (0-9) 8 % (0-9) Eosinophils (%) (Auto) 1 % (0-3) 3 % (0-3) Basophils (%) (Auto) 1 % (0-3) 1 % (0-3) Neutrophils # (Auto) 10.8 x10^3uL (1.8-7.7) 5.1 x10^3uL (1.8-7.7) Lymphocytes # (Auto) 3.1 x10^3/uL (1.0-4.8) 3.3 x10^3/uL (1.0-4.8) Monocytes # (Auto) 1.2 x10^3/uL (0.0-1.1) 0.7 x10^3/uL (0.0-1.1) Eosinophils # (Auto) 0.1 x10^3/uL (0.0-0.7) 0.3 x10^3/uL (0.0-0.7) Basophils # (Auto) 0.1 x10^3/uL (0.0-0.2) 0.1 x10^3/uL (0.0-0.2) Sodium Level 141 mmol/L (136-145) 141 mmol/L (136-145) Potassium Level 4.0 mmol/L (3.5-5.1) 4.0 mmol/L (3.5-5.1) Chloride Level 105 mmol/L (98-107) 106 mmol/L (98-107) Carbon Dioxide Level 25 mmol/L (21-32) 24 mmol/L (21-32) Anion Gap 11 (6-14) 11 (6-14) Blood Urea Nitrogen 9 mg/dL (7-20) 8 mg/dL (7-20) Creatinine 0.8 mg/dL (0.6-1.0) 0.7 mg/dL (0.6-1.0) Estimated GFR (Cockcroft-Gault) 81.6 95.2 BUN/Creatinine Ratio 11 (6-20) Glucose Level 94 mg/dL (70-99) 95 mg/dL (70-99) Calcium Level 8.7 mg/dL (8.5-10.1) 8.4 mg/dL (8.5-10.1) Total Bilirubin 0.1 mg/dL (0.2-1.0) Aspartate Amino Transf (AST/SGOT) 24 U/L (15-37) Alanine Aminotransferase (ALT/SGPT) 31 U/L (14-59) Alkaline Phosphatase 77 U/L (46-116) Total Protein 7.1 g/dL (6.4-8.2) Albumin 3.6 g/dL (3.4-5.0) Albumin/Globulin Ratio 1.0 (1.0-1.7) Lipase 200 U/L (73-393) Ethyl Alcohol Level < 10 mg/dL (0-10) Problem List Problems Medical Problems: (1) Acute pelvic inflammatory disease Status: Acute Assessment/Plan A: PID : improved P: D/c home PO abx. F/u in 1 week. BREONNA BRICE Jr, MD August 13, 2018 09:25
[2018-08-13] MEDS ORDERED: METR500T PO (09:30)
[2018-08-13] MEDS ORDERED: CIPR500T6 PO (09:30)
--- NOTE | 2018-08-13 09:30 | DISCH ---
DISCHARGE INSTRUCTIONS Condition on Discharge Condition on Discharge: Stable Activity After Discharge Activity Instructions for Disc: Activity as tolerated Lifting Instructions after Dis: No heavy lifting Driving Instructions after Dis: Do not drive today Diet after Discharge Diet after Discharge: Regular Contacting the DRMichael after DC Call your doctor for: Concerns you may have Follow-Up Follow up with: Dr. Maldonado in 1 week BREONNA BRICE Jr, MD August 13, 2018 09:30
[2018-08-13 10:00] VITALS: BP 112/77
--- NOTE | 2018-08-13 10:10 | NUR ---
Discharge Note: Pt. denies needs or questions, denies need for WC. Pt. ambulatory, discharged home with belongings, copy of discharge instructions, and prescriptions. Be Wyatt RN
== END 2018-08-13 10:10 | disposition home or self-care (01) | DRG 759 ==
LOC: ER 12:09 → 3 NORTH 14:23
PROVIDERS: ADMIT Specialist; ATTEND Specialist
DX: N73.0 Acute parametritis and pelvic cellulitis (principal); G43.909 Migraine, unspecified, not intractable, without status migrainosus; E28.2 Polycystic ovarian syndrome
CPT/HCPCS: 36415; 74177; 80048; 80053; 80307; 81001; 81025; 83690; 85025; 87040; 96374; G0480; J0456; J1885; J2405; J3010; J3490; J7050; J7120; Q9967; 99285-25; J7030